=== PATIENT | male | born 1965 | race Caucasian/White ===

== ENCOUNTER → 2023-10-29 11:43 | Outpatient (REF) | payer BC, SELFPAY | LOC: HWRAD 11:43 | PROVIDERS: ATTENDING PHYSICIAN Physician Assistant | DX: R07.89 Other chest pain (principal); R06.02 Shortness of breath | CPT/HCPCS: 71046 ==

== ENCOUNTER → 2024-01-07 08:26 | Outpatient (REF) | payer BC, SELFPAY | LOC: RCS 08:26 | PROVIDERS: ATTENDING PHYSICIAN Internal Medicine Cardiovascular Disease; FAMILY PHYSICIAN Physician Assistant | DX: R06.02 Shortness of breath (principal) | CPT/HCPCS: 93017; 93350 ==

== ENCOUNTER → 2024-01-12 15:00 | Outpatient (REF) | payer BC, SELFPAY | LOC: HWRCS 15:00 | PROVIDERS: ATTENDING PHYSICIAN Internal Medicine Cardiovascular Disease; FAMILY PHYSICIAN Orthopaedic Surgery | DX: R06.02 Shortness of breath (principal) | CPT/HCPCS: 93306 ==

== ENCOUNTER 2024-07-21 12:27 | Emergency (ER) | payer BC, SELFPAY ==
[2024-07-21 12:30] VITALS: BP 139/108
[2024-07-21 12:55] LABS: % Basophils 1.1 % (0-2); % Eosinophils 5.3 % (0-6); % Immature Granulocytes 0.4 % (0-0.5); % Lymphocytes 8.6 % (20.5-51.1); % Monocytes 10.6 % (1.7-9.3); Absolute Basophils 0.1 10^3/uL (0-0.2); Absolute Eosinophils 0.4 10^3/uL (0-0.7); Absolute Lymphocytes 0.7 10^3/uL (1.2-3.4); Absolute Monocytes 0.9 10^3/uL (0.1-0.6); Absolute Neutrophils 5.9 10^3/uL (1.4-6.5); Hematocrit 47.3 % (39.0-52.0); Hemoglobin 16.8 g/dL (13.0-18.0); Mean Corp Hgb Conc. 35.5 g/dL (33.0-37.0); Mean Corpuscular Hgb 31.6 pg (27.0-31.0); Mean Corpuscular Volume 89.1 fL (80.0-94.0); Mean Platelet Volume 9.8 fL (7.4-10.4); Nucleated Red Blood Cells % 0 % (-); Platelet Count 251 10^3/uL (130-400); Red Blood Cell Count 5.31 10^6/uL (4.70-6.10); Red Cell Dist. Width 11.9 % (11.5-14.5)
[2024-07-21 13:09] LABS: ALT (SGPT) 21 U/L (0-50); AST (SGOT) 28 U/L (17-59); Albumin 4.5 g/dl (3.5-5.0); Alkaline Phosphatase 64 U/L (38-126); Blood Urea Nitrogen 16 mg/dl (9-20); Calcium 9.1 mg/dl (8.4-10.2); Carbon Dioxide 28 mmol/L (22-30); Chloride 98 mmol/L (98-107); Glucose 106 mg/dl (70-99); Potassium 4.8 mmol/L (3.5-5.1); Sodium 136 mmol/L (135-145); Total Bilirubin 0.7 mg/dl (0.2-1.3); Total Protein 7.4 g/dl (6.3-8.2); eGFR > 60.00
[2024-07-21 13:11] LABS: COVID-19 Antigen Negative (Negative)
--- NOTE | 2024-07-21 16:03 | ED.GENMED ---
History of Present Illness
General
Chief Complaint: Cold/Flu/URI Symptoms
Source: patient
Exam Limitations: none
Time Seen by Provider: 07/21/24 15:55
History of Present Illness
History of Present Illness:
59yoM with no significant past medical history presenting for evaluation of URI symptoms x 5 days. His symptoms are congestion and cough. Cough is productive of greenish sputum. He has been treating himself with [id number]-[id number]-pdyymob medications
without much relief. He started to feel that his breathing was labored over the past 24 hours and that he was getting worse. He also reports some chest discomfort with coughing and breathing. He is worried he may have pneumonia. He reports
feeling warm but has not been checking his temperature. No known sick contacts or recent travel. He denies any tobacco use and does not take any prescription medications.
Phy Exam
General Physical Exam
General Presentation: well appearing and no apparent distress
General age: appears stated age
General Skin: warm and dry
General Habitus: normal
General Mental: alert
ENT Exam
ENT Exam: TM's normal, pharynx normal, neck supple and normocephalic
Cardiovascular Exam
Cardiovascular Exam: regular rate/rhythm, no edema and no murmur
Pulmonary Exam
Pulmonary Exam: lungs clear, no respiratory distress, no rales, no crackles and no rhonchi
Neurological Exam
Neurological Exam: alert
[place] Coma Scale
Eye Opening: Spontaneous
Verbal Response: Oriented
Motor Response: Obeys Commands
GCS Total Score: 15
Skin Exam
Skin Exam: normal color and warm/dry
Psychiatric Exam
Psychiatric Exam: normal mood/affect
Course
Orders/Labs/Results
Orders:
Orders
07/21/24 12:33
CR Chest - 2 Views Urgent
Comment:
Reason For Exam: cough
07/21/24 12:42
COVID-19 Antigen Urgent
Source: Nasal Swab
Complete Blood Count/With Diff Urgent
Comprehensive Metabolic Panel Urgent
INF RAPID [Influenza A+B Rapid Molecular] Urgent
MAX Source: Nasal Swab
Specimen Description:
07/21/24 16:03
Electrocardiogram (*1) Urgent
Reason for Study: Chest Pain
EKG- Treatment ONCE
Abnormal Lab Results
07/21/24
12:42
MCH 31.6 H pg
(27.0-31.0)
Absolute Lymphs (auto) 0.7 L 10^3/uL
(1.2-3.4)
Absolute Monos (auto) 0.9 H 10^3/uL
(0.1-0.6)
Lymphocytes % 8.6 L %
(20.5-51.1)
Monocytes % 10.6 H %
(1.7-9.3)
Glucose 106 H mg/dl
(70-99)
07/21/24 12:42
07/21/24 12:42
Vital Signs
Initial and Last Documented VS:
Initial Vital Signs
Temp Pulse Resp BP Pulse Ox
98.7 F 95 18 139/108 96
07/21/24 12:30 07/21/24 12:30 07/21/24 12:30 07/21/24 12:30 07/21/24 12:30
Last Documented Vital Signs
Temp Pulse Resp BP Pulse Ox
98.7 F 78 20 132/76 98
07/21/24 12:30 07/21/24 17:22 07/21/24 17:22 07/21/24 17:22 07/21/24 17:30
MDM/Problems Addressed
Differential Diagnosis Includes:
59yoM here with URI symptoms x 5 days. Now c/o labored breathing and chest discomfort primarily with coughing. He is afebrile and hemodynamically stable. He is well-appearing in no acute distress. Exam is reassuring and respirations are
nonlabored. Differential diagnosis includes but is not limited to: Viral illness, bronchitis, pneumonia, less likely ACS, considered myocarditis
Initial ED plan: Basic labs and COVID/flu swab obtained in triage. Labs overall unremarkable including normal white count. COVID and flu testing are negative. Will check troponin, EKG, and chest x-ray.
*EKG
Interpreted by ED Provider?: Yes
EKG Intrepretation Date: 07/21/24
Heart Rate: 82
Rate: normal
Rhythm: sinus
[place]: normal axis
Interval: normal interval
QRS Pattern: normal QRS
Ischemia: no ischemia
*Critical Care Note
Total Time (30-74mins, 75-104mins- exclusive of procedures): Not Applicable
Update Note
Update Note:
EKG shows normal sinus rhythm without ischemic changes. Patient is refusing troponin testing at this time stating he does not feel that his symptoms are cardiac in nature and he would like to go home at this time. I did discuss rationale for
troponin testing including evaluation for myocarditis but he continues to decline this. Chest x-ray is clear without infiltrates. Clinical presentation consistent with bronchitis which is likely viral. Patient is requesting antibiotic therapy.
Patient was given a 'watch and wait' prescription for doxycycline to start in 2-3 days if he does not feel better. Supportive care discussed. Advised close PCP follow-up and ED return precautions discussed. He was discharged in stable condition.
ED Attending Note
-
Portions of this chart may have been created with voice recognition software.� Occasional wrong word or��sound alike� substitutions may have occurred due to the inherent limitations of voice recognition software.
Discharge Plan
Departure
Patient Disposition: Home (Routine Discharge)
Date of Disposition: 07/21/24
Time of Disposition: 17:35
Patient with high blood pressure during this ER visit?: No
Discharge Problem:
Acute bronchitis
Instructions: Acute Bronchitis, Adult (DC)
Prescriptions:
New
doxycycline hyclate 100 mg capsule
100 mg PO BID Qty: 14 0RF
Referrals:
Jayden Putnam MD [Family Provider] -
Activity Restrictions/Additional Instructions:
Drink plenty of fluids. Continue using Mucinex for your congestion. Use Flonase nasal spray daily. Use honey and humidifier for cough.
Start the antibiotic in 2-3 days if your symptoms have not improved or are worsening.
Please follow-up with your family doctor. Return to the ER with any worsening symptoms or trouble breathing.
Interventions
Interventions:
*Risk Screen - Suicide Last Done: 07/21/24 12:30
*General Assessment Last Done: 07/21/24 12:30
*Neglect/Abuse Screening Last Done: 07/21/24 12:30
ED- Fall Risk Assessment Last Done: 07/21/24 18:00
*ED COVID-19 Vaccine History Last Done: 07/21/24 12:30
*Nursing Disposition Last Done: 07/21/24 18:00
ED- Pulmonary Assessment Last Done: 07/21/24 17:30
Discharge Date and Time
Discharge Date/Time: 07/21/24 18:00
Print Language: TELUGU
[2024-07-21 17:22] VITALS: BP 132/76; BMI 24.9
== END 2024-07-21 18:00 | disposition home or self-care (01) ==
LOC: EMR 12:27
PROVIDERS: Emergency Medicine; EMERGENCY PHYSICIAN Student in an Organized Health Care Education/Training Program; FAMILY PHYSICIAN Family Medicine
DX: J20.9 Acute bronchitis, unspecified (principal); Z11.52 Encounter for screening for COVID-19
CPT/HCPCS: 99283; 71046; 80053; 85025; 87502; 87811; 93005